=== PATIENT | male | born 1950 | race Caucasian/White ===

== ENCOUNTER → 2016-10-01 | Outpatient (CLI) | payer MEDICARE, OTHER ==
--- NOTE | ~2016-10-01 | CT52 ---
[facility] A Service of [facility] & [facility] RADIOLOGY TEXT RESULTS PATIENT: JOEL ZAMORA JR LOCATION: [facility] : 50 UNIT #: [id number] AGE: [address]: Jt Mitchell MD SEX: M ORDER DR: [id number] [facility] [address] [place], [place] [address] [id number] O MR#: [id number] Acc #: [id number] NAME: JOEL ZAMORA : 1950 SEX: M STUDY DATE/TIME: 10/01/2016 13:26 UNIT: [facility] ROOM: STUDY DESCRIPTION: CT Cervical Spine Wo Cont Attending Physician: Jt Mitchell M.D. Referring Physician: Jt Mitchell M.D. Ordering Physician: Jt Mitchell M.D. Primary Care Physician: Joel Jones M.D. MEDICAL IMAGING REPORT This report is preliminary unless electronic signature is present EXAM Cervical spine CT no contrast 10/01/2016 PROCEDURE Axial unenhanced cervical spine CT with multiplanar reformats. COMPARISON Previous cervical spine CT dated 12/26/2015 HISTORY Neck pain for 6 years radiating down back of neck into arms. FINDINGS There has been for previous fusion and there are bilateral articular mass screws at 3, 4, and 5 and unilateral left screw at C6 and bilateral screws at T1 with chronic fracture of the left T1 screw. 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 The paraspinous soft tissues are normal. TECHNIQUE This CT exam was performed with one or more of the following radiation dose reduction techniques: automatic exposure control, adjustment of mA and/or kV according to patient size, and iterative reconstruction. IMPRESSION Extensive postsurgical change but stable since 12/26/2015. No new abnormality. No evidence of device loosening or failure or change in alignment. 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 [facility] A Service of [facility] & [facility] RADIOLOGY TEXT RESULTS PATIENT: JOEL ZAMORA JR LOCATION: [facility] : 50 UNIT #: [id number] AGE: [address]: Jt Mitchell MD SEX: M ORDER DR: Dictated by... Prosper Linder M.D. THIS IS AN ELECTRONICALLY VERIFIED REPORT Prosper Linder M.D. at 10/19/2016 2:36 PM JOSE/sarah TD: 10/03/2016 07:46 JOB #: [id number] MEDICAL IMAGING REPORT Page 1 of 1 COPY
== END | disposition home or self-care (01) ==
LOC: CCAT 12:24
DX: M54.2 Cervicalgia (principal); M48.02 Spinal stenosis, cervical region; Z98.1 Arthrodesis status
CPT/HCPCS: 72125